=== PATIENT | male | born 1955 | race Caucasian/White ===

== ENCOUNTER 2022-05-05 12:13 | Observation (INO) | payer BC, MEDICARE, SELFPAY ==
[2022-05-05 12:53] LABS: #Eosinphils 0.1 10x3/uL (0.0-0.5); #Monocytes 0.6 10x3/uL (0.0-1.1); #Neutrophils 3.9 10x3/uL (1.5-8.4); %Basophils 0.5 % (0.0-2.0); %Eosinophils 0.9 % (0.0-6.0); %Lymphocytes 39.5 % (18.0-47.0); %Monocytes 7.2 % (0.0-10.0); %Neutrophils 50.5 % (40.0-75.0); Hemoglobin 15.6 g/dL (13.5-17.5); Mean Corpuscular HGB CONC 34.3 g/dL (32.0-36.0); Mean Corpuscular Hemoglobin 31.6 pg (27.0-33.0); Mean Corpuscular Volume 92.3 fl (81.2-95.1); Mean Platelet Volume 9.6 fl (7.4-10.4); Platelet Count 167 10x3/uL (150-450); RBC Distribution Width 13.4 % (11.5-14.5); Red Blood Cell (RBC) Count 4.93 10x6/uL (4.32-5.72); White Blood Cell (WBC) Count 7.8 10x3/uL (3.5-10.5)
[2022-05-05 13:05] LABS: ALT (SGPT) 24 U/L (8-55); AST (SGOT) 23 U/L (5-34); Albumin 4.2 g/dL (3.4-4.8); Alkaline Phosphatase 55 U/L (40-110); Anion Gap 14 mmol/L (10-20); BUN (Urea Nitrogen) 12 mg/dL (8.4-25.7); Bilirubin, Total 0.5 mg/dL (0.2-1.2); Calc. Creatinine Clearance 0 mL/min (70-130); Calcium 8.5 mg/dL (7.8-10.44); Carbon Dioxide 26 mmol/L (23-31); Chloride 105 mmol/L (98-107); Estimated GFR 95; Globulin 2.4 g/dL (2.4-3.5); Glucose 95 mg/dL (80-115); INR-International Normal Ratio 0.9; Lipase 34 U/L (8-78); PTT 27.1 sec (22.0-33.0); Potassium 4.6 mmol/L (3.5-5.1); Protein, Total 6.6 g/dL (5.8-8.1); Prothrombin Time 10.1 sec (9.5-12.1); Sodium 140 mmol/L (136-145)
[2022-05-05] MEDS ORDERED: Aspirin Chewable 81 MG TAB ONE (15:16)
[2022-05-05] MEDS ORDERED: Senokot S 8.6-50 MG TAB PO PRN (17:10)
[2022-05-05] MEDS ORDERED: Acetaminophen 325 MG TAB PO PRN (17:10)
[2022-05-05] MEDS ORDERED: Ondansetron PF 4 MG/2 ML Vial IVP PRN (17:10)
[2022-05-05] MEDS ORDERED: Ondansetron ODT 4 MG TAB PO PRN (17:10)
[2022-05-05 19:14] LABS: Bilirubin Neg (Negative); Blood, Urine Negative (Negative); Clarity Clear (Clear); Glucose, Urine (Dipstick) Normal (Negative); Ketone, Urine Negative (Negative); Leukocyte Negative (Negative); Nitrite Negative (Negative); Protein, Urine (Dipstick) Negative (Neg-Trace)
[2022-05-05 19:57] LABS: Troponin I Less than 0.010 ng/mL (< 0.028)
[2022-05-05] MEDS ORDERED: QUEtiapine 25 MG TAB PO SCH (21:00)
[2022-05-05] MEDS ORDERED: Atorvastatin Calcium 40 MG TAB PO SCH (21:00)
[2022-05-05] MEDS ORDERED: QUEtiapine 25 MG TAB ONE (21:40)
[2022-05-05] MEDS ORDERED: Atorvastatin Calcium 10 MG TAB ONE (21:44)
[2022-05-05 22:00] LABS: Hemoglobin A1c 5.3 % (4.0-6.0)
[2022-05-06 03:36] LABS: #Eosinphils 0.1 10x3/uL (0.0-0.5); #Monocytes 0.7 10x3/uL (0.0-1.1); #Neutrophils 3.4 10x3/uL (1.5-8.4); %Basophils 0.4 % (0.0-2.0); %Lymphocytes 40.6 % (18.0-47.0); %Monocytes 9.7 % (0.0-10.0); %Neutrophils 47.2 % (40.0-75.0); Hemoglobin 15.1 g/dL (13.5-17.5); Mean Corpuscular HGB CONC 33.9 g/dL (32.0-36.0); Mean Corpuscular Hemoglobin 31.1 pg (27.0-33.0); Mean Platelet Volume 9.5 fl (7.4-10.4); Platelet Count 155 10x3/uL (150-450); RBC Distribution Width 13.3 % (11.5-14.5); Red Blood Cell (RBC) Count 4.85 10x6/uL (4.32-5.72); White Blood Cell (WBC) Count 7.1 10x3/uL (3.5-10.5)
[2022-05-06 03:52] LABS: Anion Gap 14 mmol/L (10-20); BUN (Urea Nitrogen) 14 mg/dL (8.4-25.7); Calc. Creatinine Clearance 0 mL/min (70-130); Calcium 8.8 mg/dL (7.8-10.44); Carbon Dioxide 24 mmol/L (23-31); Cardiac Risk 4.4 (Less than 4.5); Chloride 108 mmol/L (98-107); Cholesterol 144 mg/dl (< 200 Desired); Estimated GFR 98; Glucose 100 mg/dL (80-115); HDL Cholesterol 33 mg/dL (>60 Neg Risk); LDL Cholesterol, Calculated 84 mg/dL; Potassium 4.2 mmol/L (3.5-5.1); Sodium 142 mmol/L (136-145); Triglycerides 134 mg/dL (Less than 150)
[2022-05-06] MEDS ORDERED: Aspirin 81 mg Enteric Coated Tablet PO SCH (09:00)
[2022-05-06] MEDS ORDERED: Iopamidol 370 76% 100 ML VIAL ONE (09:53)
[2022-05-06] MEDS ORDERED: Allopurinol 300 MG TAB PO SCH (10:00)
[2022-05-06] MEDS ORDERED: Losartan 25 MG TAB PO SCH (10:00)
[2022-05-06] MEDS ORDERED: Fish Oil 1,000 MG CAP PO SCH (10:00)
[2022-05-06] MEDS ORDERED: Loratadine 10 MG TAB PO SCH (10:00)
[2022-05-06] MEDS ORDERED: Clopidogrel Bisulfate 75 MG TAB PO SCH (10:00)
[2022-05-06] MEDS ORDERED: Cyanocobalamin (Vitamin B-12) 1,000 MCG TAB PO SCH (10:00)
[2022-05-06] MEDS ORDERED: Aspirin 81 mg Enteric Coated Tablet ONE (10:21)
[2022-05-06] MEDS ORDERED: Clopidogrel Bisulfate 75 MG TAB ONE (10:21)
[2022-05-06] MEDS ORDERED: Losartan 25 MG TAB ONE (10:23)
[2022-05-06 12:45] VITALS: BP 171/102; TEMP 98.3
[2022-05-06 13:59] VITALS: BMI 36.7
[2022-05-07] MEDS ORDERED: Cyanocobalamin (Vitamin B-12) 1,000 MCG TAB PO SCH (09:00)
[2022-05-07] MEDS ORDERED: Losartan 25 MG TAB PO SCH (09:00)
[2022-05-07] MEDS ORDERED: Fish Oil 1,000 MG CAP PO SCH (09:00)
[2022-05-07] MEDS ORDERED: Clopidogrel Bisulfate 75 MG TAB PO SCH (09:00)
[2022-05-07] MEDS ORDERED: Loratadine 10 MG TAB PO SCH (09:00)
[2022-05-07] MEDS ORDERED: Allopurinol 300 MG TAB PO SCH (09:00)
== END 2022-05-06 15:44 | disposition home or self-care (01) ==
LOC: CSHERS 12:13 → INTOOBSV 21:46 → CSHERHOLD 21:46 → CSHTELE 05-06 12:25
PROVIDERS: ADMIT Student in an Organized Health Care Education/Training Program; ATTEND Nurse Practitioner Acute Care
DX: G45.9 Transient cerebral ischemic attack, unspecified (principal); H61.891 Other specified disorders of right external ear; I25.10 Atherosclerotic heart disease of native coronary artery without angina pectoris; I11.0 Hypertensive heart disease with heart failure; I34.0 Nonrheumatic mitral (valve) insufficiency; I50.30 Unspecified diastolic (congestive) heart failure; F31.30 Bipolar disorder, current episode depressed, mild or moderate severity, unspecified; E78.5 Hyperlipidemia, unspecified; Z86.19 Personal history of other infectious and parasitic diseases; M10.9 Gout, unspecified; Z79.82 Long term (current) use of aspirin; Z88.1 Allergy status to other antibiotic agents; Z79.899 Other long term (current) drug therapy
CPT/HCPCS: 70450; 70498; 70551; 71045; 80048; 80061; 81003; 83036; 83690; 84484 ×2; 85025; 85610; 85730; 93005; 93306; 93880; 94760; 97116; 97535; 99285; G0378 ×2; 36415; 80053; 84443; Q9967